=== PATIENT | female | born 1960 | race American Indian/Alaskan Native ===

== ENCOUNTER 2018-11-28 09:27 | Outpatient (CLI) | payer OTHER ==
--- NOTE | 2018-11-28 10:28 | Ultrasound Report ---
ULTRASOUND ABDOMEN, COMPLETE INDICATION: R10.13) EPIGASTIC PAIN/K30) FUNCTIONAL DYSPEPSIA. COMPARISON: No relevant prior imaging study available. FINDINGS: Pancreas: No significant abnormality. Abdominal Aorta: No significant abnormality. IVC: No significant abnormality. Liver: The liver measures 13.9 cm in length. No significant abnormality. Normal hepatopedal blood fl ow in the main portal vein. Gallbladder: No significant abnormality. Bile ducts: No significant abnormality. Common bile duct measures 4.5 mm. Kidneys: Right: 10.6 cm in length. No significant abnormality. Left: 10.5 cm in length. No signif icant abnormality. Spleen: No significant abnormality. Free fluid: None. Additional Findings: None. IMPRESSION: No sonographic abnormality of the abdomen. Signer Name: Dl Sharma Jr, MD Signed: 11/28/2018 10:24 AM Workstation Name: [id number]
== END 2018-11-28 09:28 | disposition home or self-care (01) ==
LOC: US 09:27
PROVIDERS: ATTEND Internal Medicine Gastroenterology
DX: K30 Functional dyspepsia (principal)
CPT/HCPCS: 76700